=== PATIENT | male | born 1980 | race Caucasian/White ===

== ENCOUNTER 2018-09-19 12:27 | Emergency (ER) | payer OTHER ==
[~2018-09-19] VITALS: Ht 185.4 cm; Wt 100.7 kg
[~2018-09-19 12:27] MED LIST: CLARITIN10 MG PO; CLONAZEPAM 1 MG1 M1 PO; CYMBALTA60 MG PO; FLEXERIL PO; METHOCARBAMOL500 M2 PO; ONDANSETRON HCL4 M2 PO; PERCOCET PO; PROZAC10 MG PO; QUETIAPINE FUM200 MG PO; ROXICODONE5 MG PO; SUBOXONE 8 MG-1 EAC3 SUBLING; TENEX PO; TRAMADOL 50 MG50 MG PO
[2018-09-19] MEDS ORDERED: XARELTO20 MG PO (12:34)
[2018-09-19 12:50] LABS: ABSOLUTE LYMPHOCYTES 2.6 thou/uL (0.8-5.3); ABSOLUTE MONOCYTES 0.7 thou/uL (0.0-1.2); ABSOLUTE NEUTROPHILS 6.3 thou/uL (1.6-8.1); BASOPHILS 0.2 %; EOSINOPHILS 0.4 %; HEMATOCRIT 41.3 % (42.0-52.0); HEMOGLOBIN 14.4 gm/dL (14.0-18.0); LYMPHOCYTES 27.1 %; MCH 30.4 pg (26.0-34.0); MCHC 34.9 g/dL (28.0-37.0); MPV 7.9 fl. (7.2-11.1); NUCLEATED RBCS 0 /100WBC; PLATELET COUNT* 217 thou/uL (150-400); POLYS 65.3 %; RBC 4.74 mil/uL (4.50-6.00); RDW-CV 13.1 % (10.5-14.5); WBC 9.6 thou/uL (4.0-11.0)
[2018-09-19 13:03] LABS: ALBUMIN 3.3 g/dL (3.4-5.0); ALKALINE PHOSPHATASE 82 U/L (46-116); ANION GAP 11 mmol/L (7-16); BUN 10 mg/dL (7-18); CALCIUM 8.5 mg/dL (8.5-10.1); CHLORIDE 109 mmol/L (98-107); CO2 24 mmol/L (21-32); GLUCOSE 88 mg/dL (70-99); POTASSIUM 3.3 mmol/L (3.5-5.1); SGOT 9 U/L (15-37); SGPT 30 U/L (30-65); SODIUM 144 mmol/L (136-145); TOTAL BILIRUBIN 0.2 mg/dL (<0.1-1.0); TOTAL PROTEIN 6.5 g/dL (6.4-8.2); TROPONIN-I LEVEL <0.06 ng/mL (<0.06)
[2018-09-19 13:03] LABS: URINE BILIRUBIN NEGATIVE (Negative); URINE BLOOD NEGATIVE (Negative); URINE CLARITY CLEAR; URINE COLOR YELLOW; URINE GLUCOSE-RANDOM NEGATIVE (Negative); URINE KETONES NEGATIVE (Negative); URINE LEUKOCYTES-REFLEX NEGATIVE (Negative); URINE NITRITE-REFLEX NEGATIVE (Negative); URINE PROTEIN NEGATIVE (Negative); URINE SPECIFIC GRAVITY <= 1.005 (1.005-1.030); URINE UROBILINOGEN 0.2 E.U./dl (0.2-1.0)
[2018-09-19 13:09] LABS: AMP/METHAMP Negative (Negative); BARBITURATES Negative (Negative); BENZODIAZEPINES POSITIVE (Negative); COCAINE Negative (Negative); METHADONE Negative (Negative); OPIATES POSITIVE (Negative); PCP Negative (Negative); THC Negative (Negative)
[2018-09-19] MEDS ORDERED: MEDROLDOSEPACK PO (14:27)
[2018-09-19 14:59] VITALS: BP 129/89
--- NOTE | 2018-09-20 12:36 | EKG ---
[place] [address] ELECTROCARDIOGRAM REPORT Name: FAMILIALENIN Room: [facility] Scar#: [id number] Admission: 09/19/18 Attend Phys: Discharge: 09/19/18 Date of : 82 Report #: [id number] THIS REPORT FOR: //name// [facility] ED Test Date: 2018-09-19 Test Time: 12:29:53 Pat Name: LENIN BARBOSA Department: Room: Gender: M Housekeeping Aide: : 1980 Requested By: Jocy Arteaga Order Number: [id number] MD: Tam Perkins Measurements Intervals [place] Rate: 57 P: 31 SD: 155 QRS: 57 QRSD: 101 T: 31 QT: 417 QTc: 406 Interpretive Statements Sinus arrhythmia No previous ECG available for comparison Electronically Signed On 09-20-2018 12:36:10 CDT by Tam Perkins [email or web address] <ELECTRONICALLY SIGNED> By: Tam Perkins MD, [facility] 09/20/18 1236 1229 1229 Tam Perkins MD, FACC /EPI
== END 2018-09-19 14:59 | disposition home or self-care (01) ==
LOC: M.ERS 12:27
PROVIDERS: Nurse Practitioner Family
DX: R09.1 Pleurisy (principal); G89.29 Other chronic pain; M54.9 Dorsalgia, unspecified; F41.9 Anxiety disorder, unspecified; F32.9 Major depressive disorder, single episode, unspecified; M19.90 Unspecified osteoarthritis, unspecified site; F17.210 Nicotine dependence, cigarettes, uncomplicated; Z88.5 Allergy status to narcotic agent; Z88.6 Allergy status to analgesic agent; Z88.8 Allergy status to other drugs, medicaments and biological substances; Z90.49 Acquired absence of other specified parts of digestive tract; Z86.711 Personal history of pulmonary embolism; Z79.899 Other long term (current) drug therapy

== ENCOUNTER 2019-12-29 09:27 | Emergency (ER) | payer OTHER ==
[~2019-12-29] VITALS: Ht 185.4 cm; Wt 113.4 kg
[~2019-12-29 09:27] MED LIST changes: +MEDROLDOSEPACK PO; +XARELTO20 MG PO
[2019-12-29] MEDS ORDERED: XANAX2 MG (09:49)
[2019-12-29] MEDS ORDERED: PROZAC 10 MG CA10 MG (09:49)
[2019-12-29 10:50] LABS: URINE BILIRUBIN NEGATIVE (Negative); URINE BLOOD NEGATIVE (Negative); URINE CLARITY CLEAR; URINE COLOR YELLOW; URINE GLUCOSE-RANDOM NEGATIVE (Negative); URINE KETONES TRACE (Negative); URINE LEUKOCYTES-REFLEX NEGATIVE (Negative); URINE NITRITE-REFLEX NEGATIVE (Negative); URINE PROTEIN NEGATIVE (Negative); URINE UROBILINOGEN 0.2 E.U./dl (0.2-1.0)
[2019-12-29 11:57] LABS: CALCIUM 9.1 mg/dL (8.5-10.1); CREATININE 1.3 mg/dL (0.6-1.3); POTASSIUM 4.3 mmol/L (3.5-5.1)
[2019-12-29] MEDS ORDERED: LIDODERM1 EACH TRANSDERM (12:28)
[2019-12-29] MEDS ORDERED: FLEXERIL PO (12:28)
[2019-12-29] MEDS ORDERED: PREDNISONE50 MG PO (12:28)
[2019-12-29 12:30] VITALS: BP 122/77
== END 2019-12-29 12:30 | disposition home or self-care (01) ==
LOC: M.ERS 09:27
PROVIDERS: Emergency Medicine Emergency Medical Services
DX: G89.29 Other chronic pain (principal); M54.5 Low back pain; M19.90 Unspecified osteoarthritis, unspecified site; F41.9 Anxiety disorder, unspecified; F32.9 Major depressive disorder, single episode, unspecified; Z90.49 Acquired absence of other specified parts of digestive tract; Z86.711 Personal history of pulmonary embolism; Z88.6 Allergy status to analgesic agent; Z88.8 Allergy status to other drugs, medicaments and biological substances